=== PATIENT | male | born 1990 | race American Indian/Alaskan Native ===

== ENCOUNTER 2016-12-07 16:55 | Emergency (ER) | payer SELFPAY ==
[2016-12-07 17:03] VITALS: BP 146/98
[2016-12-07] MEDS ORDERED: MOTRIN PO ONE (17:20)
[2016-12-07] MEDS ORDERED: ROCEPHIN IM ONE (17:20)
[2016-12-07] MEDS ORDERED: XYLOCAINE 1% MPF 5 mL INFILTRATI ONE (17:21)
[2016-12-07] MEDS ORDERED: NACL 0.9% IR ONE (17:21)
[2016-12-07] MEDS ORDERED: HYDROGEN PEROXIDE TP ONE (17:22)
[2016-12-07] MEDS ORDERED: MARCAINE 0.5% INFILTRATI ONE (17:35)
[2016-12-07] MEDS ORDERED: TRIPLE ANTIBIOTIC TP ONE (18:54)
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
== END 2016-12-07 19:12 | disposition home or self-care (01) ==
LOC: ED 16:55
DX: S01.511A Laceration without foreign body of lip, initial encounter (principal); Y04.8XXA Assault by other bodily force, initial encounter; Y93.67 Activity, basketball; Y92.89 Other specified places as the place of occurrence of the external cause; Y99.8 Other external cause status
CPT/HCPCS: 12011; 96372; 99282; J0696; A6250

== ENCOUNTER 2020-02-09 16:49 | Emergency (ER) | payer SELFPAY ==
[2020-02-09 16:59] VITALS: BP 138/97
[2020-02-09 17:30] LABS: Hematocrit 47.4 % (35.5-45.6); Hemoglobin 16.5 gm/dl (11.8-15.2); Mean Corpuscular HGB Conc 35 % (32-34); Mean Corpuscular Volume 102 fl (84-94); Platelet Count 268 K/mm3 (140-440); Red Blood Count 4.66 M/mm3 (3.65-5.03); Red Cell Distribution Width 13.3 % (13.2-15.2)
[2020-02-09 17:49] LABS: BUN/Creatinine Ratio 13; Blood Urea Nitrogen 12 mg/dL (9-20); Calcium 9.9 mg/dL (8.4-10.2); Hemolysis Index 29
[2020-02-09 18:03] LABS: Bilirubin,Urine NEG (Negative); Blood,Urine NEG (Negative); Color,Urine Yellow (Yellow); Mucus,Urine 2+ /HPF; Urobilinogen,Urine < 2.0 mg/dL (<2.0)
--- NOTE | 2020-02-09 19:22 | Emergency Department Report ---
ED Male HPI - General Chief complaint: Abdominal Pain Stated complaint: INFECTION Time Seen by Provider: 02/09/20 18:47 Source: patient Mode of arrival: Ambulatory Limitations: No Limitations - History of Present Illness Initial comments: This 30-year-old male who presents the ED complaining of suprapubic pain and no weight sensation with urination. Patient states that he had some antibiotics left over from a dental infection which he took for couple of days and felt a little better but not all the way. Patient states that he has a sensation after urinating. Patient states he also has a weird 2 out of 10 intensity pain in the lower pelvic region. He denies penile discharge, testicular pain or swelling, penile lesions, pain or swelling. Patient states he was seen at the clinic this week and got tested for STD. Patient states he is waiting on the results which will be back by next week. He presents today stating he thinks he has an i nfection. Complaint: dysuria - Related Data Previous Rx's Medication Instructions Recorded Last Taken Type Ibuprofen [Motrin] 600 mg PO Q8H PRN #15 tablet 12/07/16 Unknown Rx cephALEXin [Keflex] 500 mg PO Q8HR #15 cap 12/07/16 Unknown Rx Ciprofloxacin HCl [Ciprofloxacin 500 mg PO Q12HR #14 tab 02/09/20 Unknown Rx TAB] Phenazopyridine [Pyridium] 100 mg PO TID #15 tab 02/09/20 Unknown Rx Allergies Allergy/AdvReac Type Severity Reaction Status Date / Time No Known Allergies Allergy Verified 12/07/16 16:59 ED Review of Systems ROS: Stated complaint: INFECTION Other details as noted in HPI Comment: All other systems reviewed and negative ED Past Medical Hx - Past Medical History Previous Medical History?: No - Surgical History Past Surgical History?: No - Social History Smoking Status: Never Smoker Substance Use Type: Alcohol - Medications Home Medications: Home Medications Medication Instructions Recorded Confirmed Last Taken Type Ibuprofen [Motrin] 600 mg PO Q8H PRN #15 tablet 12/07/16 Unknown Rx cephALEXin [Keflex] 500 mg PO Q8HR #15 cap 12/07/16 Unknown Rx Ciprofloxacin HCl [Ciprofloxacin 500 mg PO Q12HR #14 tab 02/09/20 Unknown Rx TAB] Phenazopyridine [Pyridium] 100 mg PO TID #15 tab 02/09/20 Unknown Rx ED Physical Exam - General Limitations: No Limitations General appearance: alert, in no apparent distress - Head Head exam: Present: atraumatic, normocephalic - Eye Eye exam: Present: normal appearance - ENT ENT exam: Present: mucous membranes moist - Neck Neck exam: Present: normal inspection - Respiratory Respiratory exam: Present: normal lung sounds bilaterally. Absent: respiratory distress - Cardiovascular Cardiovascular Exam: Present: regular rate, normal rhythm. Absent: systolic murmur, diastolic murmur, rubs, gallop - GI/Abdominal GI/Abdominal exam: Present: soft, normal bowel sounds. Absent: distended, tenderness, guarding - exam: Present: normal inspection External exam: Present: normal external exam - Extremities Exam Extremities exam: Present: normal inspection - Back Exam Back exam: Present: normal inspection - Neurological Exam Neurological exam: Present: alert, oriented X3 - Psychiatric Psychiatric exam: Present: normal affect, normal mood - Skin Skin exam: Present: warm, dry, intact, normal color. Absent: rash ED Course Vital Signs 02/09/20 16:55 Temperature 97.7 F Pulse Rate 77 Respiratory 16 Rate Blood Pressure 138/97 O2 Sat by Pulse 100 Oximetry ED Medical Decision Making - Lab Data Result diagrams: 02/09/20 17:06 02/09/20 17:06 Laboratory Last Values WBC 5.1 K/mm3 (4.5-11.0) 02/09/20 17:06 RBC 4.66 M/mm3 (3.65-5.03) 02/09/20 17:06 Hgb 16.5 gm/dl (11.8-15.2) H 02/09/20 17:06 Hct 47.4 % (35.5-45.6) H 02/09/20 17:06 MCV 102 fl (84-94) H 02/09/20 17:06 MCH 36 pg (28-32) H 02/09/20 17:06 MCHC 35 % (32-34) H 02/09/20 17:06 RDW 13.3 % (13.2-15.2) 02/09/20 17:06 Plt Count 268 K/mm3 (140-440) 02/09/20 17:06 Sodium 139 mmol/L (137-145) 02/09/20 17:06 Potassium 4.7 mmol/L (3.6-5.0) 02/09/20 17:06 Chloride 98.3 mmol/L (98-107) 02/09/20 17:06 Carbon Dioxide 26 mmol/L (22-30) 02/09/20 17:06 Anion Gap 19 mmol/L 02/09/20 17:06 BUN 12 mg/dL (9-20) 02/09/20 17:06 Creatinine 0.9 mg/dL (0.8-1.3) 02/09/20 17:06 Estimated GFR > 60 ml/min 02/09/20 17:06 BUN/Creatinine Ratio 13 % 02/09/20 17:06 Glucose 96 mg/dL (75-100) 02/09/20 17:06 Calcium 9.9 mg/dL (8.4-10.2) 02/09/20 17:06 Urine Color Yellow (Yellow) 02/09/20 Unknown Urine Turbidity Clear (Clear) 02/09/20 Unknown Urine pH 7.0 (5.0-7.0) 02/09/20 Unknown Ur Specific [place] 1.029 (1.003-1.030) 02/09/20 Unknown Urine Protein 30 mg/dl mg/dL (Negative) 02/09/20 Unknown Urine Glucose (UA) Neg mg/dL (Negative) 02/09/20 Unknown Urine Ketones Neg mg/dL (Negative) 02/09/20 Unknown Urine Blood Neg (Negative) 02/09/20 Unknown Urine Nitrite Neg (Negative) 02/09/20 Unknown Urine Bilirubin Neg (Negative) 02/09/20 Unknown Urine Urobilinogen < 2.0 mg/dL (<2.0) 02/09/20 Unknown Ur Leukocyte Esterase Sm (Negative) 02/09/20 Unknown Urine WBC (Auto) 36.0 /HPF (0.0-6.0) H 02/09/20 Unknown Urine RBC (Auto) 3.0 /HPF (0.0-6.0) 02/09/20 Unknown Urine Mucus 2+ /HPF 02/09/20 Unknown - Medical Decision Making 28-year-old male presents with UTI symptoms. All labs are within normal limits We will treat patient for UTI based on symptoms. Patient did take a couple days of amoxicillin which may cause the urine to be normal. I discussed symptoms with patient. I discussed with patient to follow-up with the primary care for his STD testing result. I discussed with patient we will treat for UTI and patient is to follow-up with primary care physician. Critical care attestation.: If time is entered above; I have spent that time in minutes in the direct care of this critically ill patient, excluding procedure time. ED Disposition Clinical Impression: UTI (urinary tract infection), Dysuria Disposition: TO HOME OR SELFCARE Is pt being admited?: No Does the pt Need Aspirin: No Condition: Stable Instructions: Dysuria (ED), Urinary Tract Infection in Men (ED) Additional Instructions: Make sure to follow up with the primary care physician as discussed. Take all your medications as you've been prescribed. If you have any worsening symptoms or develop new symptoms please return to ED immediately. Prescriptions: Ciprofloxacin HCl [Ciprofloxacin TAB] 500 mg PO Q12HR #14 tab Phenazopyridine [Pyridium] 100 mg PO TID #15 tab Referrals: [facility] [Outside] - 3-5 Days [facility] [Outside] - 3-5 Days PRIMARY CARE, [Primary Care Provider] - 3-5 Days Forms: Work/School Release Form(ED) Time of Disposition: 20:48
== END 2020-02-09 19:30 | disposition home or self-care (01) ==
LOC: ED 16:49
DX: N39.0 Urinary tract infection, site not specified (principal); Z79.1 Long term (current) use of non-steroidal anti-inflammatories (NSAID); Z79.899 Other long term (current) drug therapy
CPT/HCPCS: 36415; 80048; 81001; 85027; 87086; 99283